=== PATIENT | male | born 1950 | race Caucasian/White ===

== ENCOUNTER 2018-12-24 13:28 | Emergency (ER) | payer BC ==
--- NOTE | 2018-12-24 13:55 | EDM.PDOC ---
ED HPI GENERAL MEDICAL PROBLEM - General Chief Complaint: Back Pain or Injury Stated Complaint: BACK IS OUT Time Seen by Provider: 12/24/18 13:55 Source of Information: Reports: Patient, Family, RN, RN Notes Reviewed History Limitations: Reports: No Limitations - History of Present Illness INITIAL COMMENTS - FREE TEXT/NARRATIVE: Pt to ER with with c/o low back pain. Patient states between 10-15 years ago he "blew his back out". States he was carrying a heavy countertop. States he is staying at a campground in [place] and sleeping on a very hard/ uncomfortable mattress. States today he bent over to pick something up and had a very sharp pain in the low back. States he has been unable to walk to the bathroom or be comfortable anywhere except sitting in the seat of the car. States laying down increases the pain. Denies any traumatic injury to the back. Denies numbness or tingling down the legs, saddle anesthesia, or incontinence of bowel or bladder. 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 ED EXAM,LOWER BACK PAIN/INJURY - Physical Exam Exam: See Below Exam Limited By: Physical Impairment General Appearance: Alert, WD/WN, Moderate Distress Eye Exam: Bilateral Eye: EOMI, Normal Inspection Ears: Normal External Exam, Hearing Grossly Normal Nose: Normal Inspection Throat/Mouth: Normal Inspection, Normal Voice, No Airway Compromise Head: Atraumatic, Normocephalic Neck: Normal Inspection, Supple, Non-Tender, Full Range of Motion Respiratory/Chest: No Respiratory Distress, Lungs Clear, Normal Breath Sounds, No Accessory Muscle Use, Chest Non-Tender Cardiovascular: Normal Peripheral Pulses, Regular Rate, Rhythm, No Edema, No Gallop, No JVD, No Murmur, No Rub GI/Abdominal: Normal Bowel Sounds, Soft, Non-Tender, No Organomegaly, No Distention, No Abnormal Bruit, No Mass (Male) Exam: Deferred Rectal (Males) Exam: Deferred Back Exam: Normal Inspection, Decreased Range of Motion, Muscle Spasm, Paraspinal Tenderness, Vertebral Tenderness Extremities: Normal Inspection, Non-Tender, No Pedal Edema, Normal Capillary Refill, Limited Range of Motion Neurological: Alert, Normal Mood/Affect, Normal Dorsiflexion, CN II-XII Intact, Normal Plantar Flexion, Normal Reflexes, No Motor/Sensory Deficits, Oriented x 3 , Other (pain with gait) Psychiatric: Normal Affect, Normal Mood Skin Exam: Warm, Dry, Intact, Normal Color, No Rash Lymphatic: No Adenopathy Course - Vital Signs Last Recorded V/S: Last Vital Signs Temp 98.2 F 12/24/18 13:38 Pulse 68 12/24/18 13:38 Resp 16 12/24/18 13:38 BP 147/79 H 12/24/18 13:38 Pulse Ox 100 12/24/18 13:38 - Orders/Labs/Meds Meds: Medications Discontinued Medications Generic Name Dose Route Start Last Admin Trade Name Radha PRN Reason Stop Dose Admin Ketorolac Tromethamine 30 mg 12/24/18 15:21 Toradol IM 12/24/18 15:22 ONETIME ONE Methylprednisolone Sodium Succinate 125 mg 12/24/18 14:20 12/24/18 14:22 Solu-Medrol IM 12/24/18 14:21 125 mg ONETIME ONE Administration Orphenadrine Citrate 60 mg 12/24/18 14:30 Norflex IM Q12H DEEP Orphenadrine Citrate 60 mg 12/24/18 14:21 12/24/18 14:22 Norflex IM 12/24/18 14:22 60 mg ONETIME ONE Administration Departure - Departure Time of Disposition: 15:29 Disposition: Home, Self-Care 01 Condition: Fair Clinical Impression: Back pain Qualifiers: Back pain location: low back pain Chronicity: acute Back pain laterality: midline Sciatica presence: without sciatica Qualified Code(s): M54.5 - Low back pain - Discharge Information *PRESCRIPTION DRUG MONITORING PROGRAM REVIEWED*: No *COPY OF PRESCRIPTION DRUG MONITORING REPORT IN PATIENT DONAVON: No Instructions: Back Injury Prevention, [id number], Muscle Strain, [id number] , Back Exercises, [id number] Referrals: PCP,Not In Area [Primary Care Provider] - Forms: ED Department Discharge Additional Instructions: Alternate heat and ice to the back as tolerated Use Ibuprofen as directed for pain RX: Prednisone 60mg daily x4 Cyclobenzaprine 10mg NEEDED for muscle spasm DO NOT DRIVE WHILE TAKING Rest May use topical Lidocaine patches as directed Follow up with your primary care facility for MRI Return to the ER with any further problems
[2018-12-24] MEDS ORDERED: methylPREDNISolone Sodium Succinate 125 MG/2 ML SDV IVPUSH ONE (14:16)
[2018-12-24] MEDS ORDERED: methylPREDNISolone Sodium Succinate 125 MG/2 ML SDV IM ONE (14:20)
[2018-12-24] MEDS ORDERED: Ketorolac 30 MG/ML SDV IM ONE (15:21)
== END 2018-12-24 15:46 | disposition home or self-care (01) ==
LOC: DL.ED 13:28 → EDBD 13:28 → DL.ED 15:46
DX: M54.5 Low back pain (principal); Z79.82 Long term (current) use of aspirin
CPT/HCPCS: 96372; 99282; J1885; J2360; J2930